=== PATIENT | male | born 2000 | race Caucasian/White ===

== ENCOUNTER 2019-03-21 21:39 | Emergency (ER) | payer SELFPAY ==
--- NOTE | 2019-03-21 22:01 | ED_ITS ---
HPI - Eye Problem General Chief complaint: Eye Problems Stated complaint: eye iritation Source: patient and family Mode of arrival: ambulatory Limitations: no limitations History of Present Illness HPI Narrative: patient presents with his mother with some left conjunctival irritation an injection with redness crustiness with a yellow discharge of patient does wear contacts and has erythema his left eye for the last 2 to 3 days chief complaint: eye pain and eye redness Onset (ago): day(s) Onset description: gradual Duration: constant Location: left eye Eye Symptoms: redness, itching and discharge Place: home Related Data Allergies Allergy/AdvReac Type Severity Reaction Status Date / Time No Known Allergies Allergy Verified 06/07/18 20:14 Review of Systems Review of Systems: All systems reviewed & are unremarkable except as noted in HPI and below PMFSH Past Medical History Medical History Patient denies medical problems Exam Const: General: no acute distress and alert Orientation/consciousness: patient oriented x3 HENMT: Head: normal to inspection Eyes: Conjunctivae: conjunctival abnormality Pupils: Equal, round and reactive pupils present EOM: EOMs intact bilaterally Other: left conjunctival injection with yellow discharge Neck: Neck: normal visual inspection Chest: Chest palpation & inspection: normal inspection of the chest Resp: Effort & Inspection: normal respiratory effort Cardio: Rate: regular rate Rhythm: regular rhythm : Testes: Testes normal Skin: General skin exam: normal color Neuro: General: patient oriented x3 Extrem: General: normal to inspection Psych: Mental Status: mental status grossly normal Critical Care Time Critical Care Time Critical Care Time: No Discharge Plan Discharge Clinical Impression: Bacterial conjunctivitis Patient Disposition: Home, Self-Care Condition: Stable Instructions: Antibiotic Form, Conjunctivitis (ED) Additional Instructions: use eyedrops as prescribed, refrain from wearing contacts for approximately 8 days, should practice good handwashing techniques and follow-up with primary care physician if symptoms persist or worsen. Prescriptions: New neomycin-polymyxin B-dexameth [Maxitrol] 3.5 mg/g-10,000 unit/g-0.1 % ointment 1 applic EACH EYE Q6H 5 Days Qty: 3.5 RF: 0 Follow-up/Referrals: PHYSICIAN,PRODUCTION CONTROL TECHNOLOGIST [Primary Care Provider] - Time of Disposition: 22:11
[2019-03-21] MEDS: NEOMYCIN/POLYMYXIN/BACITRACIN OPHTH OINTMENT 3.5 GM TUBE 1 APPLIC (22:06)
[2019-03-21 22:10] VITALS: BP 157/89; PULSE 102; RESP 16; TEMP 36.5; O2SAT 97
== END 2019-03-21 22:16 | disposition home or self-care (01) ==
PROVIDERS: Emergency Provider Emergency Medicine
DX: H10.89 Other conjunctivitis (principal)
CPT/HCPCS: 99283; A9270